=== PATIENT | female | born 1960 | race Caucasian/White ===

== ENCOUNTER 2018-08-27 16:34 | Inpatient (IN) | payer BC, OTHER ==
[~2018-08-27] VITALS: Ht 165.1 cm; Wt 59.0 kg
--- NOTE | 2018-08-27 17:13 | NUR ---
Pre-admission assessment 58 y/o female admitted for medically supervised withdrawal of ETOH, Benzodiazepines. Pt admits to also taking Adderall for ADD. Pt reports NKA, FULL CODE. No history of smoking. Pt reports drinking 750 ml of ETOH, she drinks What ever I can get my hands on! Vodka, Rum, Liquor, Schnapps. Pt reports she takes Xanax 0.5 mg PO PRN 2-3 times/week. Pt takes prescribed Adderall 20 mg PO daily for ADD Pt has recently taken Ambien for an unspecified time, she cannot recall, possible 1-2 weeks. Vital: 140/105, HR 94 Resp 18, o2 sat 98%, Temp 98.3 Pt disheveled, wearing stained and dirty shirt, flushed face, avoidant eye contact, scattered thoughts, hyperverbal, slurred speech, loud voice when speaking.
[2018-08-27 17:35] VITALS: BP 140/105
[2018-08-27] MEDS ORDERED: QUET200T PO (18:09)
[2018-08-27] MEDS ORDERED: AMPH20CA3 PO (18:09)
[2018-08-27] MEDS ORDERED: ALPR0.5T PO (18:12)
[2018-08-27] MEDS ORDERED: ESCI5TAB PO (18:12)
[2018-08-27] MEDS ORDERED: IBUP-1953 PO (18:12)
[2018-08-27 18:16] LABS: *AMPHETAMINE, URINE POSITIVE (NEGATIVE); *BARBITURATE, URINE NEGATIVE (NEGATIVE); *CANNABINOID, URINE NEGATIVE (NEGATIVE); *COCCAINE, URINE NEGATIVE (NEGATIVE); *OPIATE, URINE NEGATIVE (NEGATIVE); *PHENCYCLIDINE SCREEN,URINE NEGATIVE (NEGATIVE)
[2018-08-27] MEDS ORDERED: CAPRYLIC ACID PO (18:19)
[2018-08-27] MEDS ORDERED: DIPH25CA83 PO (18:19)
[2018-08-27] MEDS ORDERED: [UNRECOGNIZED DRUG - OTHER] PO (18:19)
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
[2018-08-27] MEDS ORDERED: BROM500T3 PO (18:26)
[2018-08-27] MEDS ORDERED: magnesium PO (18:26)
[2018-08-27] MEDS ORDERED: BIOCELL COLLAGEN PO (18:26)
[2018-08-27] MEDS ORDERED: probiotic PO (18:26)
[2018-08-27] MEDS ORDERED: THIAMINE HCL 200 MG/2 ML VIAL IM ONE (18:30)
[2018-08-27] MEDS ORDERED: IBUPROFEN 400 MG TABLET PO PRN (18:30)
[2018-08-27] MEDS ORDERED: ONDANSETRON ODT 4 MG TAB.RAPDIS SL PRN (18:30)
[2018-08-27] MEDS ORDERED: LOPERAMIDE HCL 2 MG CAPSULE PO PRN ×2 (18:30)
[2018-08-27] MEDS ORDERED: ONDANSETRON 4 MG/2 ML VIAL IM PRN (18:30)
[2018-08-27] MEDS ORDERED: DIAZEPAM 10 MG TABLET PO PRN ×2 (18:30)
[2018-08-27] MEDS ORDERED: MAGNESIUM HYDROXIDE 30 ML LIQUID UDC PO PRN (18:30)
[2018-08-27] MEDS ORDERED: diphenhydrAMINE 50 MG CAPSULE PO PRN (18:30)
[2018-08-27] MEDS ORDERED: CLONIDINE HCL 0.1 MG TABLET PO PRN (18:30)
[2018-08-27] MEDS ORDERED: DIAZEPAM 5 MG TABLET PO PRN (18:30)
[2018-08-27] MEDS ORDERED: MAG HYDROX/AL HYDROX/SIMETH 30 ML LIQUID UDC PO PRN (18:30)
[2018-08-27] MEDS ORDERED: LORAZEPAM 2 MG/1 ML VIAL IM PRN (18:30)
[2018-08-27 18:40] LABS: *URINE HCG, QUAL NEGATIVE (NEGATIVE)
--- NOTE | 2018-08-27 19:13 | NUR ---
End of shift 57 y/o female admitted for medically supervised withdrawal of ETOH, Benzodiazepines. Denies c/o withdrawal symptoms at this time. Safety measures in place, bed locked in low position, side rails up x2, and call light within reach. Will monitor for withdrawal symptoms. Pt ate 75% dinner. Endorsed to PM shift.
--- NOTE | 2018-08-27 19:30 | NUR ---
Start of shift Patient is a 57 year old female admitted today 08/27/2018 at 1730. Patient is here at [facility] for medically supervised ETOH and Benos withdrawal. Per endorsement patients last CIWA was 0, because patient is still presenting intoxicated. Patient did not receive any PRN medications during day shift. Patient is on Fall and Seizure precautions. Upon rounds patient was noted in room watching tv, spoke to pt about Vitamin B1 shot and she accepted. Reviewed 2100 medications with patient and she verbalized understanding. Patient is breathing even and unlabored and no signs or symptoms of distress. Safety measures in place, bed locked in low position, side rails up x2, and call light within reach. Will continue to monitor.
--- NOTE | 2018-08-27 19:45 | NUR ---
Ambien Clarification Patient was assess on the use of Ambien and she stated she only used one pill of 5mg on 08/24/2018 user experience analyst. Patient said she was using Ambien for 10 years and she stopped using it a year ago, patient said the only reason I used Ambien on morning was because I found in on my luggage but it was only one pill. Patient starting using prescribed Ambien at 46 years old.
[2018-08-27 20:00] VITALS: BP 138/82
--- NOTE | 2018-08-27 20:00 | NUR ---
CIWA Assessment Patient is presenting with s/s of withdrawal as follow: sweats, anxiety and agitation. Patients CIWA is 5. Breathing is even and unlabored and no s/s of distress. Safety measures in please, bed lock in low position, side rails up x2, and call light within reach. Will continue to monitor.
[2018-08-27 20:13] LABS: BASOPHILS # (AUTO) 0.1 K/uL (0.0-8.0); BASOPHILS % (AUTO) 2.3 % (0.0-2.0); EOSINOPHILS # (AUTO) 0.3 K/uL (0.0-0.7); EOSINOPHILS % (AUTO) 4.9 % (0.0-7.0); HEMATOCRIT 33.9 % (31.2-41.9); HEMOGLOBIN 10.9 g/dL (10.9-14.3); LYMPHOCYTES % (AUTO) 52.2 % (20.5-51.5); MEAN CORPUSCULAR HEMOGLOBIN 25.4 uug (24.7-32.8); MEAN CORPUSCULAR HGB CONC 32 g/dL (32.3-35.6); MEAN CORPUSCULAR VOLUME 79.4 fL (75.5-95.3); MONOCYTES # (AUTO) 0.5 K/uL (2.0-10.0); MONOCYTES % (AUTO) 9.1 % (0.0-11.0); NEUTROPHILS # (AUTO) 1.8 K/uL (1.8-8.9); NEUTROPHILS % (AUTO) 31.5 % (38.5-71.5); PLATELET COUNT (AUTO) 297 K/uL (179-408); RED BLOOD CELL COUNT(AUTO) 4.27 MIL/uL (3.63-4.92); WHITE BLOOD COUNT (AUTO) 5.7 K/uL (3.8-11.8)
[2018-08-27 20:27] LABS: ALANINE AMINOTRANSFERASE 53 U/L (14-59); ALKALINE PHOSPHATASE 65 U/L (50-136); AMYLASE 51 U/L (25-115); ASPARTATE AMINOTRANSFERASE 36 U/L (15-37); BILIRUBIN,TOTAL 0.3 mg/dL (0.2-1.0); CARBON DIOXIDE 32 mmol/L (21-32); CHLORIDE 104 mmol/L (98-107); CREATININE 1.1 mg/dL (0.6-1.3); GLUCOSE 91 mg/dL (74-106); LIPASE 296 U/L (73-393); MAGNESIUM 1.9 mg/dL (1.8-2.4); POTASSIUM 3.9 mmol/L (3.5-5.1); TOTAL PROTEIN, SERUM 7.4 g/dL (6.4-8.2); UREA NITROGEN, BLOOD 14 mg/dL (7-18)
[2018-08-27 20:28] LABS: ETHANOL < 3 MG/DL (0-0)
[2018-08-27 20:38] LABS: THYROID STIMULATING HORMONE 3.117 mIU/mL (0.358-3.740)
[2018-08-27] MEDS ORDERED: QUETIAPINE FUMARATE 200 MG TABLET PO ONE (21:00)
[2018-08-28] VITALS: BP 115/77
--- NOTE | 2018-08-28 | NUR ---
CIWA Deferred Patient was noted in bed resting with eyes closed, breathing even and unlabored. Per protocol CIWA is to be assessed while patient is awake. Safety measures in please, bed lock in low position, side rails up x2, and call light within reach. Will continue to monitor.
[2018-08-28 04:00] VITALS: BP 118/79
--- NOTE | 2018-08-28 07:07 | NUR ---
End of shift Patient is a 57 year old female admitted today . Patient is here at [facility] for medically supervised ETOH and Benos withdrawal. Patient is on a 4 day Valium taper starts today 08/28/2018. Patients last CIWA is 5. Patient did not receive any PRN medications during this shift. Patient is on Fall and Seizure precautions. Patient slept for 10 hours and had a total in take of 1,000 ml. Patient voided x2 and had no bowel movements during this shift. Patient is breathing even and unlabored and no signs or symptoms of distress. Safety measures in place, bed locked in low position, side rails up x2, and call light within reach. Will endorse to day shift.
--- NOTE | 2018-08-28 07:30 | NUR ---
Start Of Shift Patient is a 57 yr old female who was admitted to [facility] on 08/27/18 for a medically supervised withdrawal from ETOH ( Wine/Hard Liquor), Benzodiazepines ( Xanax) and also states she uses Adderall and Ambien, she has been placed on a 4 day Valium taper and today is day 1. No PRN medications were requested or required on PM shift, her last CIWA was 5 and she slept for 10 hours. At this time she is sitting in chair in room and requests Motrin for pain related to her Multiple Sclerosis, plan to administer and start 4 day Valium taper. Continue to follow MD plan of care and offer support and encouragement.
[2018-08-28 08:00] VITALS: BP 134/90
--- NOTE | 2018-08-28 08:00 | NUR ---
JAYA 11 Patient presents with increased anxiety, excitability, restlessness and body aches Scheduled Valium 10mg PO given and Motrin 400mg PO for aches
--- NOTE | 2018-08-28 08:30 | NUR ---
PRN Motrin Motrin 400mg PO given for body aches R/T MS per pt report
[2018-08-28] MEDS: THIAMINE HCL 100 MG TABLET PO SCH (08:37)
[2018-08-28] MEDS: MULTIVITAMINS,THERAPEUTIC TABLET PO SCH (08:37)
[2018-08-28] MEDS: DIAZEPAM 10 MG TABLET PO SCH ×3 (08:37→20:18)
[2018-08-28] MEDS: FOLIC ACID 1 MG TABLET PO SCH (08:40)
[2018-08-28] MEDS ORDERED: 4 DAY TAPER VALIUM-SERENITY PROTOCOL PO PRN (09:00)
[2018-08-28] MEDS ORDERED: TUBERCULIN,PURIF.PROT.DERIV. 5 TU/0.1 ML TEST ID ONE (09:00)
--- NOTE | 2018-08-28 09:30 | NUR ---
PRN Reassess Patient states she has mild relief from Motrin 400mg PO, states due to her MS she takes Motrin all day. Will continue to monitor
[2018-08-28 12:00] VITALS: BP 143/92
--- NOTE | 2018-08-28 12:00 | NUR ---
CIWA 11 Patient presents with increased anxiety, excitability, restlessness, pins and needles in hands and feet and neck ache. No PRN medications required or requested
[2018-08-28] MEDS ORDERED: NEOMY/BACITRAC/POLYMI OINT 28.35 GM TUBE TOP PRN (13:00)
[2018-08-28] MEDS ORDERED: IBUPROFEN 400 MG TABLET PO PRN (13:00)
--- NOTE | 2018-08-28 13:53 | NUR ---
Therapist prompted client to attend all group therapy sessions.
[2018-08-28] MEDS: [UNRECOGNIZED DRUG - OTHER] PO SCH ×2 (14:04→16:23)
[2018-08-28] MEDS: BROMELAIN PO SCH ×2 (14:04→16:23)
[2018-08-28] MEDS: PB8 PROBIOTIC PO SCH ×2 (14:04→16:23)
[2018-08-28] MEDS: MAGNESIUM CHLORIDE 64 MG TABLET.SA PO SCH ×2 (14:05→16:21)
[2018-08-28] MEDS: IBUPROFEN 800 MG TABLET PO PRN (14:28)
--- NOTE | 2018-08-28 14:30 | NUR ---
PRN Motrin Motrin 800mg PO was given @1430 for C/O neck pain 04/16
--- NOTE | 2018-08-28 15:30 | NUR ---
PRN Reassess Motrin 800mg PO effective per pt report, pain level is now 3/10 ( was 6/10)
[2018-08-28 16:00] VITALS: BP 150/85
[2018-08-28] MEDS: ESCITALOPRAM OXALATE 10 MG TABLET PO SCH (16:21)
--- NOTE | 2018-08-28 17:37 | NUR ---
WA 16 Patient presents with increased anxiety, excitability, restlessness, paces up and down, pins and needles in hands and feet and neck ache. Motrin 800mg PO given @ 1530 along with scheduled Valium 10mg PO Addendum: 08/28/18 at 1739 by ONELIA FOWLER RN Correction: Motrin 800mg PO was given @ 1430
--- NOTE | 2018-08-28 19:10 | NUR ---
End Of Shift Patient is a 57 yr old female who was admitted to [facility] on 08/27/18 for a medically supervised withdrawal from ETOH ( Wine/Hard Liquor), Benzodiazepines ( Xanax) and also states she uses Adderall and Ambien, she has been placed on a 4 day Valium taper and today is day 1. PRN medications given on this shift: Motrin 400mg PO x1, Motrin 800mg PO x1, She had a fluid intake of 1500 ML, 5 voids and 2 BM. Her last CIWA was 16 @ 1600. Her withdrawal symptoms present as agitation, irritability, excitability , restlessness and neck aches. Continue to follow MD plan of care and offer support and encouragement. Endorsed to mini shifter.
--- NOTE | 2018-08-28 19:30 | NUR ---
Start of shift note Received report from day shift nurse. Patient is a 57 year old female admitted for ETOH and Benzo withdrawal. Patient is on 4 day Valium taper. Patient was given PRN Motrin x 2. Motrin 400 mg was increased to 800 mg. Last CIWA 16. Patient alert and oriented x 4. Patient is anxious, restless, irritable, c/o hot and cold sweats, flushed face, tremors, sensitive to light and sound. Safety measures in place. Call light within reach. Will continue to monitor.
--- NOTE | 2018-08-28 20:00 | NUR ---
CIWA assessment Patient presents with anxiety, restlessness, irritability, agitation, intermittent sweating, restless legs, sensitive to light and sounds, fatigue and yawning. CIWA 15
[2018-08-28] MEDS: CAPRYLIC ACID PO SCH (20:18)
[2018-08-28] MEDS: QUETIAPINE FUMARATE 200 MG TABLET PO SCH (20:18)
--- NOTE | 2018-08-28 20:21 | NUR ---
PRN Maalox administration Patient c/o heartburn. Will monitor for effectiveness
[2018-08-28] MEDS ORDERED: QUETIAPINE FUMARATE 200 MG TABLET PO SCH (21:00)
--- NOTE | 2018-08-28 21:21 | NUR ---
DEVANTE Chambers re-assessment Patient states Maalox helpful and effective. She feels much better
[2018-08-28 22:00] VITALS: BP_SYST 61
[2018-08-29] VITALS: BP 109/68
--- NOTE | 2018-08-29 | NUR ---
CIWA assessment Patient lying in bed with eyes closed. Respiration even and unlabored. Will continue to monitor Addendum: 08/29/18 at 0622 by JOSIE FISHER LVN CIWA maxine
[2018-08-29 04:00] VITALS: BP 118/93
--- NOTE | 2018-08-29 04:00 | NUR ---
CIWA assessment Patient lying in bed with eyes closed. Respiration even and unlabored. Will continue to monitor Addendum: 08/29/18 at 0623 by JOSIE FISHER LVN CIWA maxine
[2018-08-29] MEDS: HYDROXYZINE PAMOATE 25 MG CAPSULE PO PRN (05:23)
[2018-08-29 06:06] LABS: HEPATITIS B SURFACE AG Negative (Negative)
[2018-08-29] MEDS: BROMELAIN PO SCH (06:30)
[2018-08-29] MEDS: [UNRECOGNIZED DRUG - OTHER] PO SCH (06:30)
[2018-08-29] MEDS: PB8 PROBIOTIC PO SCH (06:30)
--- NOTE | 2018-08-29 07:08 | NUR ---
End of shift note Patient slept 8 hours. Fluid intake 500 ml. Voided x 2 . No BM. Patient alert and oriented x 4. Patient presented with anxiety , restlessness, irritability , c/o hot and cold sweats, flushed face, malaise, tremors, sensitive to light and sound. Scheduled medication and taper given as ordered. PRN Maalox given for heartburn at 2020, effective. At 522, patient was anxious and restless. PRN Vistaril given, effective. Patient in her room most of the shift. Safety measures in place. Call light within reach. Will continue to monitor. Last CIWA 10.
--- NOTE | 2018-08-29 07:30 | NUR ---
Start of Shift Wind Turbine Mechanic received report on 57 year old female admitted to [facility] on 08/27/18 for medical management of ETOH and Benzodiazepine withdrawals. Pt endorses NKA, full code and regular diet. Pt endorses a PMH of HTN(untreated), MS(asymptomatic), Lymes Disease and DDD of the neck. Pt endorses a PPH of ADD and depression. Pt currently on a 4 day Valium taper with last CIWA 10, per report. Pt was administered Maalox(stomach) and Vistaril(anxiety) as PRN medication on NOC, per report. Wind Turbine Mechanic encounters pt in pts room. Pt is A/O x4 and able to assert needs. Pt with a clear thought process, perseverating on her nutrition supplements and nutritional routine. Pt is energetic, hyper-verbal and anxious, although pt denies anxiety. Pt with a rapid and hyper-verbal speech pattern. Pt with an anxious affect and congruent mood. Bed in low position, with wheels locked and side rails up x2. Will continue to monitor, support and encourage according to plan of care.
[2018-08-29 08:00] VITALS: BP 137/88
--- NOTE | 2018-08-29 08:00 | NUR ---
CIWA 9 Pt is anxious, restless, with fine tremors and diaphoresis. Will continue to monitor, support and encourage according to plan of care.
[2018-08-29] MEDS: MULTIVITAMINS,THERAPEUTIC TABLET PO SCH (08:37)
[2018-08-29] MEDS: DIAZEPAM 5 MG TABLET PO SCH ×4 (08:37→20:17)
[2018-08-29] MEDS: FOLIC ACID 1 MG TABLET PO SCH (08:37)
[2018-08-29] MEDS: MAGNESIUM CHLORIDE 64 MG TABLET.SA PO SCH ×2 (08:37→18:14)
[2018-08-29] MEDS: THIAMINE HCL 100 MG TABLET PO SCH (08:37)
[2018-08-29] MEDS: ESCITALOPRAM OXALATE 10 MG TABLET PO SCH (08:38)
[2018-08-29] MEDS: PATIENT MAY USE OWN MED- MD OK PO SCH ×9 (09:49→17:00)
--- NOTE | 2018-08-29 11:40 | NUR ---
Endorsement Data Solutions Architect endorsed care of pt to TARI Nunes.
--- NOTE | 2018-08-29 11:45 | NUR ---
Assumed care of Pt. She is A/OX 4.
[2018-08-29 12:00] VITALS: BP 149/87
--- NOTE | 2018-08-29 14:29 | NUR ---
Therapist prompted client to attend daily group therapy sessions.
[2018-08-29 16:00] VITALS: BP 150/92
[2018-08-29] MEDS: IBUPROFEN 800 MG TABLET PO PRN (17:04)
--- NOTE | 2018-08-29 19:19 | NUR ---
END OF SHIFT: Pt continues on Valium taper to manage s/s of w/d which include anxiety,restlessness and irritability. She attended groups and interacted with peers. She was compliant with meds and increased fluids. Last CIWA 7. Will pass shift report to oncoming night nurse.
--- NOTE | 2018-08-29 19:30 | NUR ---
Start of shift note Received report from day shift nurse. Patient is a 57 year old female admitted for ETOH withdrawal. Continue on Valium taper, tolerated well. Patient was given PRN Motrin . Last CIWA 9. Patient alert and oriented x 4. Patient presents with poor eye contact, pressured speech, anxious, irritable and blunted. Safety measures in place. Call light in within reach. Will continue to monitor.
[2018-08-29 20:00] VITALS: BP 132/71
--- NOTE | 2018-08-29 20:00 | NUR ---
CIWA assessment Patient reports anxiety, restlessness, irritability, agitation, panic feeling, intermittent sweating and restless legs. CIWA 7 Addendum: 08/30/18 at 0227 by JOSIE FISHER LVN Error : this charting is for another patient
--- NOTE | 2018-08-29 20:00 | NUR ---
CIWA assessment Patient reports anxiety, restlessness, irritability, agitation, intermittent sweating restless legs and fatigue. CIWA 9
[2018-08-29] MEDS: QUETIAPINE FUMARATE 200 MG TABLET PO SCH (20:17)
[2018-08-29] MEDS: CAPRYLIC ACID PO SCH (20:18)
--- NOTE | 2018-08-30 | NUR ---
CIWA deferred Patient lying in bed with eyes closed. Respiration even and unlabored. VS refused . Will continue to monitor
--- NOTE | 2018-08-30 04:00 | NUR ---
CIWA deferred Patient lying in bed with eyes closed. Respiration even and unlabored. VS refused . Will continue to monitor
[2018-08-30] MEDS: PATIENT MAY USE OWN MED- MD OK PO SCH ×12 (05:20→17:08)
--- NOTE | 2018-08-30 07:11 | NUR ---
End of shift note Patient slept 8 hours. Fluid intake 500 ml. Voided x 1. No BM. Patient alert and oriented x 4. Patient presented with poor eye contact, pressured speech, anxious, irritable and blunted. Scheduled medication and taper given as ordered, tolerated well with no adverse reaction . Patient states medication are effective in controlling her withdrawal symptoms. Patient did not require PRN medication. Safety measures in place. Call light in within reach. Will continue to monitor. Last CIWA 9.
--- NOTE | 2018-08-30 07:30 | NUR ---
Start of Shift Menswear Salesperson received report on 57 year old female admitted to [facility] on 08/27/18 for medical management of ETOH and Benzodiazepine withdrawals. Pt endorses NKA, full code and regular diet. Pt endorses a PMH of HTN(untreated), MS(asymptomatic), Lymes Disease and DDD of the neck. Pt endorses a PPH of ADD and depression. Pt currently on a 4 day Valium taper with last CIWA 9, per report. Pt was not administered any PRN medication on NOC, per report. Menswear Salesperson encounters pt in pts room. Pt is resting with eyes closed. Even and unlabored respirations noted. Bed in low position, with wheels locked and side rails up x2. Will continue to monitor, support and encourage according to plan of care.
--- NOTE | 2018-08-30 08:00 | NUR ---
CIWA 8 Pt is tremulous, anxious and restless with moist skin. Will continue to monitor, support and encourage according to plan of care. Will continue to monitor, support and encourage according to plan of care.
[2018-08-30 08:05] VITALS: BP 122/77
[2018-08-30] MEDS: FOLIC ACID 1 MG TABLET PO SCH (08:23)
[2018-08-30] MEDS: MAGNESIUM CHLORIDE 64 MG TABLET.SA PO SCH ×2 (08:23→17:08)
[2018-08-30] MEDS: THIAMINE HCL 100 MG TABLET PO SCH (08:23)
[2018-08-30] MEDS: MULTIVITAMINS,THERAPEUTIC TABLET PO SCH (08:23)
[2018-08-30] MEDS: ESCITALOPRAM OXALATE 10 MG TABLET PO SCH (08:23)
[2018-08-30] MEDS ORDERED: DIAZEPAM 5 MG TABLET PO SCH (09:00)
[2018-08-30 12:55] VITALS: BP 126/70
--- NOTE | 2018-08-30 12:58 | NUR ---
CIWA 7 Pt is anxious and restless, with moist skin. Will continue to monitor, support and encourage according to plan of care.
--- NOTE | 2018-08-30 14:40 | NUR ---
Therapist prompted client to attend group therapy sessions.
[2018-08-30 16:55] VITALS: BP 141/82
--- NOTE | 2018-08-30 16:56 | NUR ---
CIWA 6 Pt is anxious and restless with fine tremors. Will continue to monitor, support and encourage according to plan of care.
[2018-08-30] MEDS: IBUPROFEN 800 MG TABLET PO PRN (17:07)
--- NOTE | 2018-08-30 17:07 | NUR ---
DEVANTE Pérez Pt endorses generalized body discomfort rated as 6/10. Pt requests medication by name, stating, " I take it around the clock at home." Will continue to monitor, support and encourage according to plan of care.
[2018-08-30] MEDS: DIAZEPAM 5 MG TABLET PO SCH (17:08)
--- NOTE | 2018-08-30 18:07 | NUR ---
PRN Re-Assessment Pt states she has felt relief and is more comfortable at this time. Will continue to monitor, support and encourage according to plan of care.
--- NOTE | 2018-08-30 19:00 | NUR ---
End of Shift Operations Associate provided report on 57 year old female admitted to [facility] on 08/27/18 for medical management of ETOH and Benzodiazepine withdrawals. Pt endorses NKA, full code and regular diet. Pt endorses a PMH of HTN(untreated), MS(asymptomatic), Lymes Disease and DDD of the neck. Pt endorses a PPH of ADD and depression. Pts taper modified to a three day Valium taper, with anticipated discharge Tuesday. Last CIWA 6. Pt administered PRN Motrin(pain) on this shift. Pt is A/O x4 and able to make needs known. Pt with a linear thought process and clear speech pattern. Bright affect with flat mood. Pt perseverates on keeping same medication schedule as at home. Denies significant detox symptoms, but remains anxious, restless, irritable and has moist skin. Bed in low position, with wheels locked and side rails up x2.
--- NOTE | 2018-08-30 19:30 | NUR ---
Start of shift Patient is a 57 year old female admitted today 08/27/2018. Patient is here at [facility] for medically supervised ETOH and Benos withdrawal. Per endorsement patients last CIWA was 6. Patient receives PRN Motrin during day shift. Patient is on Fall and Seizure precautions. Upon rounds patient was noted in room watching tv, reviewed 2100 medications with patient and she verbalized understanding. Patient is breathing even and unlabored and no signs or symptoms of distress. Safety measures in place, bed locked in low position, side rails up x2, and call light within reach. Will continue to monitor.
[2018-08-30 20:00] VITALS: BP 126/79
--- NOTE | 2018-08-30 20:00 | NUR ---
CIWA Assessment Patient is presenting with s/s of withdrawal as follow: sweats, tremors, anxiety and agitation. Patients CIWA is 8. Breathing is even and unlabored and no s/s of distress. Safety measures in please, bed lock in low position, side rails up x2, and call light within reach. Will continue to monitor.
[2018-08-30] MEDS: QUETIAPINE FUMARATE 200 MG TABLET PO SCH (20:35)
[2018-08-30] MEDS: CAPRYLIC ACID PO SCH (20:35)
[2018-08-31] VITALS: BP 124/81
[2018-08-31 04:00] VITALS: BP 106/79
[2018-08-31] MEDS: PATIENT MAY USE OWN MED- MD OK PO SCH ×12 (05:59→16:21)
--- NOTE | 2018-08-31 06:53 | NUR ---
End of shift Patient is a 57 year old female admitted today 08/27/2018. Patient is here at [facility] for medically supervised ETOH and Benzos withdrawal. Per endorsement patients last CIWA was 8. Patient did not receive any PRN medications during this shift. Patient is on Fall and Seizure precautions. Patient slept for 10 hours and had a total intake of 500 ml. Patient voided x3 and had no bowel movements during this shift. Safety measures in please, bed lock in low position, side rails up x2, and call light within reach. Will endorse to day shift.
[2018-08-31 08:00] VITALS: BP 115/80
--- NOTE | 2018-08-31 08:00 | NUR ---
Start of Shift Notes/CIWA Assessment: Received endorsement from night nurse. Patient is a 57 year old female admitted for ETOH and BZO withdrawal who was placed on a 3-day Valium taper as ordered. This is patient's last day of her taper. Per night report, patient was not given any PRNs. Last CIWA 8. Slept for 10 hours. Received patient in her room. Awake, alert and oriented x 4. Appears anxious, worried, dark circles under her eyes and somnolent upon waking. She verbalizes generalized discomfort and intermittent perspiration. CIWA 14. Educated patient on her current plan of care for the day and her medication regimen. Encouraged oral fluid intake and encouraged group participation to learn new skills to prevent relapse. All needs met and attended. Will continue to monitor closely.
[2018-08-31] MEDS: THIAMINE HCL 100 MG TABLET PO SCH (08:16)
[2018-08-31] MEDS: MULTIVITAMINS,THERAPEUTIC TABLET PO SCH (08:16)
[2018-08-31] MEDS: MAGNESIUM CHLORIDE 64 MG TABLET.SA PO SCH ×2 (08:16→17:24)
[2018-08-31] MEDS: FOLIC ACID 1 MG TABLET PO SCH (08:16)
[2018-08-31] MEDS: ESCITALOPRAM OXALATE 10 MG TABLET PO SCH (08:17)
[2018-08-31] MEDS: DIAZEPAM 5 MG TABLET PO SCH (08:17)
[2018-08-31] MEDS ORDERED: DIAZEPAM 5 MG TABLET PO SCH (09:00)
[2018-08-31 12:00] VITALS: BP 131/79
--- NOTE | 2018-08-31 12:07 | NUR ---
CIWA Assessment: CIWA 12, patient continues to present with s/s of withdrawal related to ETOH use m/b gross tremors, irritability, anxiety, agitation, generalized discomfort, fatigue, and difficulty concentrating. Will medicate patient as ordered. Support provided.
[2018-08-31 16:00] VITALS: BP 129/79
--- NOTE | 2018-08-31 16:27 | NUR ---
CIWA Assessment: CIWA 12, patient continues to present with s/s of withdrawal from ETOH use m/b gross tremors, irritability, anxiety, agitation, generalized discomfort, fatigue, and difficulty concentrating. Will medicate patient as ordered. She was able to participate in afternoon group and activities. Support provided.
[2018-08-31] MEDS: IBUPROFEN 800 MG TABLET PO PRN (17:24)
--- NOTE | 2018-08-31 17:24 | NUR ---
Motrin 800 mg PO given: Patient complains of 6/10 headache. Non-pharmacological interventions provided but ineffective. Medicated patient with Motrin 800 mg PO as ordered. Will monitor for effectiveness.
--- NOTE | 2018-08-31 18:24 | NUR ---
Re-assessment: Motrin Patient verbalizes relief from headache. PL is now 2 out of 10. PRN Motrin was effective.
--- NOTE | 2018-08-31 19:04 | NUR ---
End of Shift Notes: Patient continues to be on 3-day Valium taper as ordered with last dose to be given to night. VS monitored closely. No significant abnormalities noted. Withdrawal symptoms were closely monitored. Initial CIWA 14, patient presented with anxiety, agitation, gross tremors, irritability, difficulty concentrating, fatigue and generalized discomfort. Last CIWA 12. Patient verbalizes that Valium has been effective in reducing her withdrawal symptoms. Motrin 800 mg PO given as ordered for headache with help. Able to participate in group and activities despite her withdrawal symptoms. Appetite good. All needs met and attended. Will continue to monitor closely.
[2018-08-31 19:28] VITALS: BP 134/86
[2018-08-31] MEDS: HYDROXYZINE PAMOATE 25 MG CAPSULE PO PRN (19:29)
--- NOTE | 2018-08-31 19:31 | NUR ---
Start of Shift/PRN Medication Administration Patient Received. Per endorsement, patient has completed her 5 day Valium taper. Patient is set for discharge tomorrow morning 09/01/18 at 0500. Patient received PRN Motrin with medication noted to be effective. Last noted CIWA 12. Upon rounds patient verbalizes increased itching to left upper extremity and requesting Vistaril. PRN Vistaril administered as per patients request. She states "its what usually helps. I probably ate too much balsamic vinegar with my salad." Patient is also requesting night medications at 1999. Will continue to monitor.
[2018-08-31] MEDS: QUETIAPINE FUMARATE 200 MG TABLET PO SCH (20:05)
[2018-08-31] MEDS: CAPRYLIC ACID PO SCH (20:05)
--- NOTE | 2018-08-31 20:40 | NUR ---
PRN Medication reassessment/ Vitals refused Patient reported itching to her upper left extremity and PRN Vistaril administered. Upon reassessment, patient is noted with eyes closed breathing evenly and unlabored. No facial grimacing or restlessness noted. PRN medication noted to be effective. Patient also noted to refuse vitals for the remainder of the shift and requesting to not be disturbed for vitals. Risks explained and patient verbalized understanding. Will continue to monitor.
--- NOTE | 2018-09-01 00:53 | NUR ---
VITALS and CIWA DEFERRED Patient was noted lying in bed with even and unlabored respirations. Vitals and CIWA assessment refused. Patient remains in stable condition. Will continue to monitor.
[2018-09-01] MEDS: PATIENT MAY USE OWN MED- MD OK PO SCH ×3 (04:12→04:13)
[2018-09-01 04:40] VITALS: BP 113/74
--- NOTE | 2018-09-01 06:27 | NUR ---
Discharge Patient is in stable condition, vitals noted within normal limits, and skin is intact. Patient denies any suicidal ideations. All discharge paper work reviewed with patient, signed and dated. Patient was discharged from [facility] 09/01/18 at 0627. Patient left the building with all of her medications, belongings and prescriptions. made aware.
== END 2018-09-01 06:27 | disposition home or self-care (01) | DRG 895 ==
LOC: SRC 16:34
PROVIDERS: ADMIT Family Medicine Addiction Medicine; ATTEND Family Medicine Addiction Medicine
PROC: HZ2ZZZZ Detoxification Services for Substance Abuse Treatment (ICD-10-PCS; principal; 2018-08-27)
PROC: HZ41ZZZ Group Counseling for Substance Abuse Treatment, Behavioral (ICD-10-PCS; 2018-08-28)
PROC: HZ31ZZZ Individual Counseling for Substance Abuse Treatment, Behavioral (ICD-10-PCS; 2018-08-29)
DX: F10.230 Alcohol dependence with withdrawal, uncomplicated (principal); F10.220 Alcohol dependence with intoxication, uncomplicated; F15.23 Other stimulant dependence with withdrawal; Y90.0 Blood alcohol level of less than 20 mg/100 ml; F90.9 Attention-deficit hyperactivity disorder, unspecified type; G47.00 Insomnia, unspecified; I10 Essential (primary) hypertension; F41.9 Anxiety disorder, unspecified; Z81.8 Family history of other mental and behavioral disorders; F32.9 Major depressive disorder, single episode, unspecified; F13.239 Sedative, hypnotic or anxiolytic dependence with withdrawal, unspecified; Z79.899 Other long term (current) drug therapy
CPT/HCPCS: 36415; 70030-TC; 80307; 80324; 80346; 83690; 83735; 84443; 84703; 85025; 86592; 86705; 86803; 87340; 87806; G0480; J3411